=== PATIENT | male | born 1945 | race Caucasian/White ===

== ENCOUNTER 2017-04-19 06:51 | Emergency (ER) | payer OTHER ==
[~2017-04-19 06:51] MED LIST: ALLOPURINOL 10100 M1 PO; ASPIRIN325; CRESTOR40 MG PO; HYDROCHLOROTHIA25 M1 PO; KEFLEX500 MG PO; LISINOPRIL20 MG; METOPROLOL TAR100 MG PO; NORCO 5-325 TA1 EACH PO
== END 2017-04-19 11:33 ==
LOC: ER 06:51
DX: I46.9 Cardiac arrest, cause unspecified (principal); I10 Essential (primary) hypertension; Z88.8 Allergy status to other drugs, medicaments and biological substances